=== PATIENT | female | born 1975 | race American Indian/Alaskan Native ===

== ENCOUNTER 2020-01-15 09:44 | Emergency (ER) | payer SELFPAY ==
--- NOTE | 2020-01-15 09:52 | Emergency Department Report ---
ED ENT HPI - General Chief complaint: Dental/Oral Stated complaint: TOOTH PAIN Time Seen by Provider: 01/15/20 09:51 Source: patient Mode of arrival: Ambulatory Limitations: No Limitations - History of Present Illness Initial comments: Patient is a 44-year-old -[place] female who was sent to the ER by her dentist today. She went in complaining of left maxillary dental pain but given the infection they sent her to the ER to get antibiotics before they would extract the tooth next week. Patient has left upper mandibular tenderness and abscess. She has no Ludewig's. She has no posterior pharynx abscess. She is controlling secretions. No drooling. No trismus. No fever or chills. No hypotension or tachycardia. Patient denies any fever or chills. Vital signs are normal in triage MD complaint: tooth pain -: Gradual, days(s) Consistency: constant Improves with: none Worsens with: none Associated Symptoms: gum swelling, toothache. denies: fever, cough, pain with swallowing, sore throat, tinnitus, hearing loss, discharge from ear - Related Data Previous Rx's Medication Instructions Recorded Last Taken Type Clindamycin [Clindamycin CAP] 300 mg PO Q8H #30 cap 01/15/20 Unknown Rx Ibuprofen [Motrin] 800 mg PO Q8HR PRN #30 tablet 01/15/20 Unknown Rx Allergies Allergy/AdvReac Type Severity Reaction Status Date / Time No Known Allergies Allergy Unverified 01/15/20 09:45 ED Dental HPI - General Chief complaint: Dental/Oral Stated complaint: TOOTH PAIN Time Seen by Provider: 01/15/20 09:51 Source: patient Mode of arrival: Ambulatory Limitations: No Limitations - Related Data Previous Rx's Medication Instructions Recorded Last Taken Type Clindamycin [Clindamycin CAP] 300 mg PO Q8H #30 cap 01/15/20 Unknown Rx Ibuprofen [Motrin] 800 mg PO Q8HR PRN #30 tablet 01/15/20 Unknown Rx Allergies Allergy/AdvReac Type Severity Reaction Status Date / Time No Known Allergies Allergy Unverified 01/15/20 09:45 ED Review of Systems ROS: Stated complaint: TOOTH PAIN Other details as noted in HPI Comment: All other systems reviewed and negative ED Past Medical Hx - Past Medical History Previous Medical History?: Yes Hx Asthma: Yes - Surgical History Past Surgical History?: No - Family History Family history: no significant - Social History Smoking Status: Current Every Day Smoker Substance Use Type: None - Medications Home Medications: Home Medications Medication Instructions Recorded Confirmed Last Taken Type Clindamycin [Clindamycin CAP] 300 mg PO Q8H #30 cap 01/15/20 Unknown Rx Ibuprofen [Motrin] 800 mg PO Q8HR PRN #30 tablet 01/15/20 Unknown Rx ED Physical Exam - General Limitations: No Limitations General appearance: alert, in no apparent distress - Head Head exam: Present: atraumatic, normocephalic - Eye Eye exam: Present: normal appearance - ENT ENT exam: Present: mucous membranes moist - Expanded ENT Exam Expanded Mouth exam: Absent: drooling, trismus, muffled voice, tongue normal, tongue elevation Teeth exam: Present: dental tenderness # 1 - Other (tooth of origin, pain) Throat exam: Positive: normal inspection. Negative: tonsillar erythema, tonsillar exudate, R peritonsillar mass, L peritonsillar mass - Neck Neck exam: Present: normal inspection - Respiratory Respiratory exam: Present: normal lung sounds bilaterally. Absent: respiratory distress - Cardiovascular Cardiovascular Exam: Present: regular rate, normal rhythm. Absent: systolic murmur, diastolic murmur, rubs, gallop - GI/Abdominal GI/Abdominal exam: Present: soft, normal bowel sounds - Extremities Exam Extremities exam: Present: normal inspection - Back Exam Back exam: Present: normal inspection - Neurological Exam Neurological exam: Present: alert, oriented X3 - Psychiatric Psychiatric exam: Present: normal affect, normal mood - Skin Skin exam: Present: warm, dry, intact, normal color. Absent: rash ED Course Vital Signs 01/15/20 01/15/20 09:45 10:30 Temperature 98.8 F Pulse Rate 86 Respiratory 16 16 Rate Blood Pressure 158/98 O2 Sat by Pulse 100 Oximetry ED Medical Decision Making - Medical Decision Making Vital Signs (72 hours) 01/15/20 01/15/20 09:45 10:30 Temperature 98.8 F Pulse Rate 86 Respiratory 16 16 Rate Blood Pressure 158/98 O2 Sat by Pulse 100 Oximetry Patient has left upper mandibular dental caries/pain with gingival disease and abscess involving the gums. She does have left-sided facial swelling. There is no Ludewig's. There is no posterior pharynx abscess. She has no trismus. Vital signs are normal. She is able to take p.o. Patient was medicated with normal saline, Decadron, clindamycin and pain medication in the ER. She has a dental appointment already scheduled for next w yocha dehe. On discharge patient taking p.o. vital signs are stable she is in no acute distress. She understands the importance of taking her medications. - Differential Diagnosis Rule out abscess, dental caries Critical care attestation.: If time is entered above; I have spent that time in minutes in the direct care of this critically ill patient, excluding procedure time. ED Disposition Clinical Impression: Dental abscess, Dental caries Disposition: TO HOME OR SELFCARE Is pt being admited?: No Does the pt Need Aspirin: No Condition: Stable Additional Instructions: see dentist kayleen take meds as ordered today take with food to avoid nausea stay well hydrated with water motrin or tylenol for pain Prescriptions: Clindamycin [Clindamycin CAP] 300 mg PO Q8H #30 cap Ibuprofen [Motrin] 800 mg PO Q8HR PRN #30 tablet PRN Reason: Pain, Moderate (4-6) Referrals: PRIMARY CARE, [Primary Care Provider] - 3-5 Days [facility] [Outside] - 3-5 Days Time of Disposition: 09:52
[2020-01-15] MEDS ORDERED: dexAMETHasone 4 MG/ML VIAL IV ONE (09:54)
[2020-01-15] MEDS ORDERED: SODIUM CHLORIDE 0.9% 1000 ML 1,000 ML IV ONE (09:54)
[2020-01-15] MEDS ORDERED: ONDANSETRON 4 MG/2 ML INJ IV ONE (09:55)
[2020-01-15] MEDS ORDERED: HYDROmorphone 1 MG/1 ML INJ IV ONE (09:55)
[2020-01-15] MEDS ORDERED: IBUPROFEN 800 MG TAB PO ONE (10:37)
[2020-01-15 11:06] VITALS: BP 167/82
== END 2020-01-15 11:45 | disposition home or self-care (01) ==
LOC: ED 09:44
DX: K04.7 Periapical abscess without sinus (principal); K02.9 Dental caries, unspecified; J45.909 Unspecified asthma, uncomplicated; F17.200 Nicotine dependence, unspecified, uncomplicated; Z79.1 Long term (current) use of non-steroidal anti-inflammatories (NSAID); Z79.2 Long term (current) use of antibiotics
CPT/HCPCS: 96365; 96375; 99283; J1100; J1170; J2405; J7030